=== PATIENT | female | born 1960 | race African-American/Black ===

== ENCOUNTER → 2016-05-30 | Outpatient (CLI) | payer OTHER ==
[~2016-05-30] MED LIST: ALBU8I INH; CYCL-36 PO; IBUP800T23 PO; LOVA20TA PO; MAXZ25 PO; NAPR500 PO; ROBA500T PO; VENTAER INH
== END ==
LOC: CLAB 11:45
PROVIDERS: ATTEND Obstetrics & Gynecology
DX: R30.9 Painful micturition, unspecified (principal)
CPT/HCPCS: 87077; 87086; 87186

== ENCOUNTER 2016-08-28 18:03 | Emergency (ER) | payer OTHER ==
[~2016-08-28] VITALS: Ht 149.9 cm; Wt 61.5 kg
[~2016-08-28 18:03] MED LIST changes: -IBUP800T23 PO; -ROBA500T PO; -VENTAER INH
[2016-08-28 18:05] VITALS: BP 159/85; PULSE 106; RESP 17; TEMP 98.2; O2SAT 98
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
[2016-08-28] MEDS ORDERED: VENTAER INH (18:29)
[2016-08-28] MEDS ORDERED: NAPR500 PO (18:29)
[2016-08-28] MEDS ORDERED: ROBA500T PO (18:30)
[2016-08-28] MEDS ORDERED: IBUP800T23 PO (18:30)
[2016-08-28] MEDS ORDERED: CYCLOBENZAPRINE HCL 10 MG TAB PO ONE (19:30)
[2016-08-28] MEDS ORDERED: IBUPROFEN 600 MG TAB PO ONE (19:30)
== END 2016-08-28 19:37 | disposition home or self-care (01) ==
LOC: NEPK 18:03
DX: S16.1XXA Strain of muscle, fascia and tendon at neck level, initial encounter (principal); S39.012A Strain of muscle, fascia and tendon of lower back, initial encounter; I10 Essential (primary) hypertension; Z87.09 Personal history of other diseases of the respiratory system; Z87.39 Personal history of other diseases of the musculoskeletal system and connective tissue; V89.2XXA Person injured in unspecified motor-vehicle accident, traffic, initial encounter; Y92.488 Other paved roadways as the place of occurrence of the external cause; Y99.0 Civilian activity done for income or pay
CPT/HCPCS: 99283

== ENCOUNTER 2016-12-09 21:56 | Emergency (ER) | payer OTHER ==
[~2016-12-09 21:56] MED LIST changes: -ALBU8I INH; -CYCL-36 PO; +IBUP800T23 PO; -LOVA20TA PO; -MAXZ25 PO; +ROBA500T PO; +VENTAER INH
[2016-12-09 22:01] VITALS: BP 113/58; PULSE 76; RESP 16; TEMP 97.7; O2SAT 100
[2016-12-11] MEDS ORDERED: PRED-503 PO (20:25)
== END 2016-12-10 00:08 | disposition left against medical advice (07) ==
LOC: NED 21:56
DX: M54.2 Cervicalgia (principal); Z53.21 Procedure and treatment not carried out due to patient leaving prior to being seen by health care provider
CPT/HCPCS: 99281

== ENCOUNTER 2016-12-11 17:05 | Emergency (ER) | payer OTHER ==
[~2016-12-11] VITALS: Ht 149.9 cm; Wt 61.5 kg
[2016-12-11 17:16] VITALS: BP 143/88; PULSE 84; RESP 22; TEMP 98.7; O2SAT 98
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
[2016-12-11] MEDS ORDERED: PRED-503 PO (20:25)
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
== END 2016-12-11 20:57 | disposition home or self-care (01) ==
LOC: NEPK 17:05
DX: M54.12 Radiculopathy, cervical region (principal); M19.90 Unspecified osteoarthritis, unspecified site; I10 Essential (primary) hypertension; J45.909 Unspecified asthma, uncomplicated; E78.00 Pure hypercholesterolemia, unspecified
CPT/HCPCS: 99283

== ENCOUNTER → 2017-07-30 | Outpatient (CLI) | payer OTHER ==
[~2017-07-30] MED LIST changes: +ALBU1.25 NEB; +ALBU6.7H INH; +BACL10TA PO; +DICL75TA PO; +FLUT1SPR5 EACH NARE; +IBUP1TAB7 PO; -IBUP800T23 PO; +LISI20TA3 PO; +OMEP20TA93 PO; +PRED-503 PO; +ROSU1TAB8 PO
[2017-07-30 14:05] LABS: AUTOMATED NEUTROPHIL # 9.4 TH/MM3 (1.8-7.7); BASOPHIL # 0.1 TH/MM3 (0-0.2); BASOPHIL % 0.4 % (0.0-2.0); EOSINOPHIL # 0.3 TH/MM3 (0-0.4); EOSINOPHIL % 2.3 % (0.0-4.0); HEMOGLOBIN 11.4 GM/DL (11.6-15.3); LYMPH % 18.3 % (9.0-44.0); LYMPHOCYTE # 2.4 TH/MM3 (1.0-4.8); MEAN CELL VOLUME 76.6 FL (80.0-100.0); MEAN CORPUSCULAR HEMOGLOBIN 24.9 PG (27.0-34.0); MEAN CORPUSCULAR HGB CONC 32.5 % (32.0-36.0); MEAN PLATELET VOLUME 8.5 FL (7.0-11.0); MONO % 8.3 % (0.0-8.0); MONOCYTE # 1.1 TH/MM3 (0-0.9); NEUT % 70.7 % (16.0-70.0); PLATELET COUNT 363 TH/MM3 (150-450); RED BLOOD COUNT 4.57 MIL/MM3 (4.00-5.30); RED CELL DISTRIBUTION WIDTH 15.2 % (11.6-17.2); WHITE BLOOD COUNT 13.3 TH/MM3 (4.0-11.0)
[2017-07-30 14:07] LABS: BILIRUBIN, URINE NEG (NEG); BLOOD, URINE NEG (NEG); GLUCOSE,URINE NEG (NEG); KETONE, URINE NEG (NEG); NITRITE,URINE NEG (NEG); URINE COLOR LIGHT-YELLOW (YELLW/STRAW); URINE LEUKOCYTE ESTERASE NEG (NEG)
[2017-07-30 14:16] LABS: INTERNATIONAL NORMALIZED RATIO 0.9 RATIO; PROTHROMBIN TIME - PATIENT 9.6 SEC (9.8-11.6)
--- NOTE | 2017-07-30 14:23 | RADRPT ---
EXAM DATE/TIME: 07/30/2017 13:41 [facility] COMPARISON: CHEST PA & LAT, August 20, 2014, 11:44. INDICATIONS : Evaluate for pneumonia, pneumothorax or communicable disease. Cervical spine surgery 418. MEDICAL HISTORY : bronchitis SURGICAL HISTORY : None. ENCOUNTER: Initial ACUITY: 1 day PAIN SCORE: 0/10 LOCATION: Bilateral chest FINDINGS: PA and lateral views of the chest demonstrate the lungs to be symmetrically aerated without evidence of mass, infiltrate or effusion. The cardiomediastinal contours are unremarkable. Osseous structure s are intact. CONCLUSION: No acute disease. Derek Coreas MD on July 30, 2017 at 14:20 Board Certified Radiologist. This report was verified electronically.
[2017-07-30 14:35] LABS: ALBUMIN 4.1 GM/DL (3.4-5.0); AST (GOT) 10 U/L (15-37); BICARBONATE 25.9 MEQ/L (21.0-32.0); BLOOD UREA NITROGEN 22 MG/DL (7-18); CALCIUM 9.7 MG/DL (8.5-10.1); CHLORIDE 102 MEQ/L (98-107); CREATININE 0.95 MG/DL (0.50-1.00); GLOMERULAR FILTRATION RATE 74 ML/MIN (>89); GLUCOSE,FASTING 80 MG/DL (74-99); SODIUM (NA) 136 MEQ/L (136-145)
[2017-07-30 14:36] LABS: ALT (GPT) 23 U/L (10-53)
[2017-07-30 14:39] LABS: ALKALINE PHOSPHATASE 80 U/L (45-117); TOTAL BILIRUBIN ADULT 0.4 MG/DL (0.2-1.0); TOTAL PROTEIN 8.9 GM/DL (6.4-8.2)
--- NOTE | 2017-07-31 15:39 | EKG ---
Date Performed: 07/30/2017 Time Performed: 12:52:51 PTAGE: 57 years EKG: Sinus rhythm POSSIBLE LEFT ATRIAL ENLARGEMENT BORDERLINE ECG Since the PREVIOUS TRACING , no significant change noted PREVIOUS TRACIN05/07/2015 23.26 DOCTOR: Hernandez Johnston Interpretating Date/Time 07/31/2017 15:37:57
== END ==
LOC: CPRE 12:27
PROVIDERS: ATTEND Neurological Surgery
DX: Z01.810 Encounter for preprocedural cardiovascular examination (principal); Z01.811 Encounter for preprocedural respiratory examination; Z01.812 Encounter for preprocedural laboratory examination; Z01.818 Encounter for other preprocedural examination; M54.12 Radiculopathy, cervical region; R94.31 Abnormal electrocardiogram [ECG] [EKG]; M99.59 Intervertebral disc stenosis of neural canal of abdomen and other regions; Z79.01 Long term (current) use of anticoagulants
CPT/HCPCS: 36415; 71046; 80053; 81001; 85025; 85610; 85730; 87640; 87641; 93005

== ENCOUNTER 2017-08-07 06:23 | Observation (INO) | payer OTHER ==
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
[~2017-08-07] VITALS: Ht 149.9 cm; Wt 66.0 kg
[~2017-08-07 06:23] MED LIST changes: -NAPR500 PO; -PRED-503 PO; -ROBA500T PO; -VENTAER INH
[2017-08-07] MEDS ORDERED: SODIUM CHLORID 0.9% 500 ML IV PRN (06:45)
[2017-08-07] MEDS ORDERED: POVIDONE IODINE 5% (ANTISEPSIS KIT) 4 APPLICATIONS EACH NARE PRN (06:45)
[2017-08-07] MEDS ORDERED: LACTATED RINGER'S 1000 ML IV PRN (06:45)
[2017-08-07] MEDS ORDERED: CHLORHEXIDINE GLUCONATE 2 % 1 PACK (2 CLOTHS) TOPICAL PRN (06:45)
[2017-08-07] MEDS ORDERED: METOPROLOL TARTRATE 25 MG TAB PO PRN (06:45)
[2017-08-07] MEDS ORDERED: VANCOMYCIN 1 GM/200 ML PREMIX ON-CALL IV SCH (06:45)
[2017-08-07] MEDS ORDERED: VANCOMYCIN HCL 1000 MG VIAL ONE (06:57)
[2017-08-07] MEDS ORDERED: THROMBIN (TOPICAL) 5,000 UNIT VIAL ONE (06:58)
[2017-08-07] MEDS ORDERED: GELFOAM SIZE 100 ONE (06:58)
[2017-08-07] MEDS ORDERED: BUPIVACAINE/EPINEPHRINE 0.5% PF 30 ML VIAL ONE (07:01)
[2017-08-07] MEDS ORDERED: PROPOFOL 500 MG/50 ML INJ 200 ML ONE (07:11)
[2017-08-07] MEDS ORDERED: HYDROmorphone HCL PF 2 MG/ML VIAL ONE (07:12)
[2017-08-07] MEDS ORDERED: KETAMINE HCL 500 MG/10 ML VIAL ONE (07:13)
[2017-08-07] MEDS ORDERED: ARTIFICIAL TEARS OPTH OINT 3.5 APPLIC/3.5 GM TUBO ONE (07:38)
[2017-08-07] MEDS ORDERED: PROPOFOL 500 MG/50 ML INJ 100 ML ONE (08:16)
[2017-08-07] MEDS ORDERED: DEXAMETHASONE SOD PHOS 4 MG/ML VIAL ONE (09:49)
[2017-08-07] MEDS ORDERED: CYCLOBENZAPRINE HCL 10 MG TAB PO PRN (11:23)
--- NOTE | 2017-08-07 11:44 | PD.OP ---
cc: Praveen Buitrago MD Operative Report Date of Surgery: Aug 07, 2017 Preoperative Diagnosis: Intractable neck pain with the bilateral C5 radiculopathy; cervical C4-5 disc osteophyte complex and protrusion with associated spinal and foraminal stenosis and kyphosis Postoperative Diagnosis: Same Procedure: Anterior cervical C4-5 microdiscectomy with foraminotomy and interbody fusion; anterior C4-5 cervical plate placement; C4-5 interbody cage placement; microsurgical technique Anesthesia: Gen. endotracheal by Areli joens Surgeon: Morris Ferguson M.D. Operation and Findings: Following administration of general endotracheal anesthesia, the patient received a gram of vancomycin and Decadron 10 mg intravenously. Sequential compression devices were placed in supine position on a Hernan table and all pressure points adequately padded. The head secured in a donut and anterior cervical region then shaved and prepped with Chloraprep and sterilely draped with Ioban along with the usual sterile draping. A transverse skin incision on the left side of the neck was then made after infiltrating the skin with 0.5% Marcaine with epinephrine solution extending down through the platysma. At the anterior border of the sternocleidomastoid further dissection was undertaken developing a plane between the carotid sheath laterally and the trachea esophagus medially. The prevertebral fascia was exposed and dissected out. The medial attachments of the longus colli muscles were detached and a self- retaining retractor used for exposure. The C4-5 disc space was localized with a marking the disc space and using lateral fluoroscopy. [place] distraction screws 14 mm length were placed one in the C4 and one in the C5 body interbody distraction and exposure. There was significant disc degeneration with disc height collapse with kyphosis and anterior osteophytes noted at the C4-5 level and the osteophytes were resected with a Leksell and annulus incised with a 15 blade and further dissection undertaken using microtechnique with microscope magnification. Diskectomy was undertaken with pituitaries and the endplates were also decorticated with curettes and drill bit. And more posteriorly there was disk osteophyte complex compressing the thecal sac along with a significant uncovertebral joint hypertrophy with foraminal stenosis which was decompressed along with removal of the posterior longitudinal ligaments at both levels. The foramen was decompressed bilaterally using a Kerrison's and palpation with a nerve hook, the exiting nerve roots were felt to be free. The area was then copiously irrigated. I then placed a Peek cage packed with local autograft bone at the C4-5 interspace under fluoroscopy guidance. [place] distraction pins were removed and the holes plugged with Gelfoam for hemostasis. In order to facilitate the fusion and provide stabilization, a Precision spine Uniplate was then placed with a 14 mm variable angle screws in the C4 body and a 14 mm fixed angle screws in the C5 body. The plate screw locking mechanism was then engaged. AP and lateral fluoroscopy confirmed good placement of the construct and the retractor was then removed. Muscular bleeding points were cauterized with bipolar cautery and Gelfoam was then also used for hemostasis which was removed. The platysma was then approximated using 3-0 Vicryl interrupted stitches and 3-0 Vicryl subcuticular stitch also placed in an interrupted fashion, and final skin closure was with Mastisol and Steri-Strips. Sterile dressing was then applied. The neck is immobilized in a Holt collar. The patient was then extubated and taken to the recovery room. There are no intraoperative complications and all sponge and needle counts were correct at the end of procedure. Estimated blood loss was about 100 cc. The patient did undergo intraoperative neurologic monitoring which remained stable throughout the surgery. Morris Ferguson MD Aug 07, 2017 11:44
[2017-08-07] MEDS ORDERED: LACTULOSE SYRUP 20 GM/30 ML CUP PO PRN (11:45)
[2017-08-07] MEDS ORDERED: MAGNESIUM HYDROXIDE SUSP 30 ML CUP PO PRN (11:45)
[2017-08-07] MEDS ORDERED: ALBUTEROL SULFATE 90 MCG/ACT HFA 8 GM INHALER INH PRN (11:45)
[2017-08-07] MEDS ORDERED: RESP: ALBUTEROL 1.25 MG/3 ML NEB (PRN) NEB (11:45)
[2017-08-07] MEDS ORDERED: SENNOSIDES 8.6 MG TAB PO PRN (11:45)
[2017-08-07] MEDS ORDERED: BISACODYL 10 MG SUPP RECTAL PRN (11:45)
[2017-08-07] MEDS ORDERED: SODIUM CHLOR 0.9% 1000 ML INJ 1,000 ML IV ONE (12:00)
[2017-08-07] MEDS ORDERED: DEXAMETHASONE SOD PHOS 4 MG/ML VIAL IV ONE (12:00)
[2017-08-07] MEDS ORDERED: PROPOFOL 200 MG/20 ML AMP IV ONE (12:00)
[2017-08-07] MEDS ORDERED: PHENYLEPHRINE HCL 10 MG/ML VIAL IV ONE (12:00)
[2017-08-07] MEDS ORDERED: SODIUM CHLORID 0.9% 500 ML INJ 500 ML IV ONE (12:00)
[2017-08-07] MEDS ORDERED: LIDOCAINE HCL 1% PF 5 ML SYRINGE OTHER ONE (12:00)
[2017-08-07] MEDS ORDERED: NEOSTIGMINE 5 MG/5 ML SYRINGE IV PUSH ONE (12:00)
[2017-08-07] MEDS ORDERED: GLYCOPYRROLATE 0.6 MG/3 ML SYRINGE IV PUSH ONE (12:00)
[2017-08-07] MEDS ORDERED: ROCURONIUM INJ 50 MG/5 ML SYRINGE IV PUSH ONE (12:00)
[2017-08-07] MEDS ORDERED: SODIUM CHLOR 0.9% 250 ML INJ 250 ML IV ONE (12:00)
[2017-08-07] MEDS ORDERED: ONDANSETRON HCL 4 MG/2 ML VIAL IV ONE (12:00)
[2017-08-07] MEDS ORDERED: NALOXONE HCL 0.4 MG/ML AMP ONE (12:07)
[2017-08-07] MEDS ORDERED: MIDAZOLAM HCL 2 MG/2 ML VIAL ONE (12:08)
[2017-08-07] MEDS ORDERED: NS + KCL 20 MEQ INJ 1,000 ML IV SCH (12:30)
[2017-08-07] MEDS ORDERED: cloNIDine HCL 0.1 MG TAB PO PRN (12:30)
[2017-08-07] MEDS ORDERED: MORPHINE SULFATE 2 MG/ML SYRINGE IV PUSH PRN (12:30)
[2017-08-07] MEDS ORDERED: ACETAMINOPHEN 325 MG TAB PO PRN (12:30)
[2017-08-07] MEDS ORDERED: MENTHOL LOZENGE BUCCAL PRN (12:30)
[2017-08-07] MEDS ORDERED: ONDANSETRON HCL 4 MG/2 ML VIAL IV PUSH PRN (12:30)
[2017-08-07] MEDS ORDERED: SODIUM CHLORIDE 0.9% FLUSH 10 ML FLUSH IV FLUSH PRN (12:30)
[2017-08-07] MEDS ORDERED: ALUMINUM/MAGNESIUM/SIMETH 30 ML CUP PO PRN (12:30)
--- NOTE | 2017-08-07 12:30 | RADRPT ---
EXAM DATE/TIME: 08/07/2017 08:57 [facility] COMPARISON: No previous studies available for comparison. INDICATIONS : Cervical fusion of C4/5. MEDICAL HISTORY : Unobtainable. SURGICAL HISTORY : Unobtainable. ENCOUNTER: Initial ACUITY: 1 day PAIN SCORE: Non-responsive. LOCATION: Cervical spine. FINDINGS: 2 views in the operating room show discectomy and fusion procedure with interbody and anterior instru mentation at C4/C5. Alignment is normal. No acute complication demonstrated. CONCLUSION: Expected radiographic appearance, discectomy and fusion procedure at C4/C5. Tr Garcia MD on August 07, 2017 at 12:27 Board Certified Radiologist. This report was verified electronically.
[2017-08-07] MEDS ORDERED: PROMETHAZINE INJ 25 MG/ML VIAL IM PRN (13:00)
[2017-08-07] MEDS ORDERED: *morphine SULFATE 4 MG/ML PERIprocedure ONLY ONE (13:04)
[2017-08-07] MEDS: DEXAMETHASONE SOD PHOS 4 MG/ML VIAL IV PUSH SCH ×2 (14:57→19:22)
[2017-08-07 15:49] VITALS: BP 147/78; PULSE 68; RESP 18; TEMP 97.9; O2SAT 100
[2017-08-07] MEDS: ACETAMINOPHEN/HYDROcodone 325 MG/10 MG TAB PO PRN (17:55)
[2017-08-07] MEDS: BACLOFEN 10 MG TAB PO SCH (19:22)
[2017-08-07] MEDS: DOCUSATE SODIUM 50 MG/SENNA 8.6 MG TAB PO SCH (19:22)
[2017-08-07] MEDS: SODIUM CHLORIDE 0.9% FLUSH 10 ML FLUSH IV FLUSH SCH (19:23)
[2017-08-07 20:00] VITALS: BP 113/53; PULSE 87; RESP 16; TEMP 98.5; O2SAT 96
[2017-08-07] MEDS ORDERED: ZOLPIDEM TARTRATE 5 MG TAB PO PRN (21:00)
[2017-08-08 00:20] VITALS: BP 111/56; PULSE 72; RESP 16; TEMP 98.1; O2SAT 100
[2017-08-08] MEDS: ACETAMINOPHEN/HYDROcodone 325 MG/10 MG TAB PO PRN ×6 (00:30→23:08)
[2017-08-08] MEDS: DEXAMETHASONE SOD PHOS 4 MG/ML VIAL IV PUSH SCH (00:30)
[2017-08-08 04:15] VITALS: BP 117/58; PULSE 73; RESP 16; TEMP 98; O2SAT 98
[2017-08-08 07:30] VITALS: BP 96/51; PULSE 78; RESP 17; TEMP 98.3; O2SAT 98
[2017-08-08] MEDS: HYDROCHLOROTHIAZIDE 25 MG TAB PO SCH (09:00)
[2017-08-08] MEDS: LISINOPRIL 20 MG TAB PO SCH (09:00)
[2017-08-08] MEDS: FLUTICASONE PROPIONATE 50 MCG/ACT 16 GM NASAL SPRAY EACH NARE SCH (09:00)
[2017-08-08] MEDS: ATORVASTATIN 40 MG TAB PO SCH (09:05)
[2017-08-08] MEDS: BACLOFEN 10 MG TAB PO SCH ×2 (09:05→23:07)
[2017-08-08] MEDS: DOCUSATE SODIUM 50 MG/SENNA 8.6 MG TAB PO SCH ×2 (09:06→23:08)
[2017-08-08] MEDS: SODIUM CHLORIDE 0.9% FLUSH 10 ML FLUSH IV FLUSH SCH ×2 (09:06→23:08)
[2017-08-08] MEDS: PANTOPRAZOLE SOD 20 MG DELAYED RELEASE TAB PO SCH (09:06)
--- NOTE | 2017-08-08 09:27 | HHI.NSPN ---
(Juventino Jacobs) History Chief Complaint: Incisional discomfort. (Juventino Jacobs) Interval History 08/09/17: Pt awake and alert. Sitting up in bed. Complains of difficulty swallowing. She is tolerating soft food such as apple sauce and her pills in that. No paresthesias in UEs. No radiculopathy in UEs. She has incisional discomfort. Weakness in UEs in deltoid bilaterally left more than right. (Juventino Jacobs) Review of Systems General: Negative for: fever, chills, insomnia Respiratory: Negative for: shortness of breath, cough, sputum Cardiovascular: Negative for: chest pain Gastrointestinal: Negative for: nausea, vomitting, diarrhea, constipation ( Juventino Jacobs) Exam Results Vital Signs Date Time Temp Pulse Resp B/P (MAP) Pulse Ox O2 Delivery O2 Flow Rate FiO2 08/08/17 07:30 98.3 78 17 96/51 (66) 98 08/07/17 14:15 Nasal Cannula 2 Intake and Output 08/08/17 08/08/17 08/09/17 08:00 16:00 00:00 Intake Total 100 ml Balance 100 ml (Juventino Jacobs) Physical Examination General: Pt resting in bed in NAD. Eyes: Pupils equal. Sclera anicteric. Resp: CTA bilaterally. Heart: NSR no murmurs Abd: Soft positive bs Skin: No cyanosis or erythema. Steri strips intact. New bandage placed. Muscle: Moves UEs with generalized weakness. She has difficulty lifting elbows to shoulder level left more than right, right 3/5 left 3-/5. She has left HI weakness 4-/5 right 4/5. Biceps and triceps generalized giveaway weakness 4-4+/5. Neuro: Pt awake and alert. Sitting up in bed. Follows commands well. Speech soft but appropriate. (Juventino Jacobs) Lab, Micro, Other Results Last Impressions Cervical Spine X-Ray 08/07/17 0000 Signed Impressions: Service Date/Time: Monday, August 07, 2017 08:57 - CONCLUSION: Expected radiographic appearance, discectomy and fusion procedure at C4/C5. Tr Garcia MD 08/08/17 08/08/17 08/09/17 15:00 23:00 07:00 Intake Total 100 ml Balance 100 ml Intake IV Total 100 ml (Juventino Jacobs) Medical Decision Making Impression and Plan A: 57 y/o FM s/p C4/C5 ACF with plate placement. P: OOB to chair. Ambulate with assistance. Speech therapy evaluate swallow for recommendations (Juventino Jacobs) Attending Statement The exam, history, and the medical decision-making described in the above note were completed with the assistance of the mid-level provider. I reviewed and agree with the findings presented. I attest that I had a [id number] encounter with the patient on the same day, and personally performed and documented my assessment and findings in the medical record. Relates some pain with movement especially left deltoid but is able to lift to shoulder level although not incorporating well for full muscle strength evaluation. We'll get PT and OT involvement and increase her activity status as tolerated along with pain control. (Morris Ferguson MD) Juventino Jacobs Aug 08, 2017 09:27 Morris Ferguson MD Aug 08, 2017 13:19
[2017-08-08 12:00] VITALS: BP 133/64; PULSE 77; RESP 18; TEMP 97.8; O2SAT 99
[2017-08-08 16:34] VITALS: BP 133/68; PULSE 77; RESP 17; TEMP 97.7; O2SAT 99
[2017-08-08 20:00] VITALS: BP 138/78; PULSE 77; RESP 15; TEMP 97.7; O2SAT 99
[2017-08-09] VITALS: BP 124/57; PULSE 87; RESP 20; TEMP 97.9; O2SAT 96
[2017-08-09 03:33] VITALS: BP 124/59; PULSE 75; RESP 19; TEMP 98.1; O2SAT 98
[2017-08-09] MEDS: ACETAMINOPHEN/HYDROcodone 325 MG/10 MG TAB PO PRN ×3 (03:47→11:50)
[2017-08-09 08:00] VITALS: BP 123/60; PULSE 92; RESP 18; TEMP 98.1; O2SAT 97
[2017-08-09] MEDS: BACLOFEN 10 MG TAB PO SCH (08:27)
[2017-08-09] MEDS: PANTOPRAZOLE SOD 20 MG DELAYED RELEASE TAB PO SCH (08:27)
[2017-08-09] MEDS: LISINOPRIL 20 MG TAB PO SCH (08:27)
[2017-08-09] MEDS: DOCUSATE SODIUM 50 MG/SENNA 8.6 MG TAB PO SCH (08:28)
[2017-08-09] MEDS: HYDROCHLOROTHIAZIDE 25 MG TAB PO SCH (08:28)
[2017-08-09] MEDS: SODIUM CHLORIDE 0.9% FLUSH 10 ML FLUSH IV FLUSH SCH (08:28)
[2017-08-09] MEDS: ATORVASTATIN 40 MG TAB PO SCH (08:28)
[2017-08-09] MEDS: FLUTICASONE PROPIONATE 50 MCG/ACT 16 GM NASAL SPRAY EACH NARE SCH (08:35)
--- NOTE | 2017-08-09 09:34 | HHI.NSPN ---
History Chief Complaint: Incisional discomfort. Interval History 08/08/17: Pt awake and alert. Sitting up in bed. Complains of difficulty swallowing. She is tolerating soft food such as apple sauce and her pills in that. No paresthesias in UEs. No radiculopathy in UEs. She has incisional discomfort. Weakness in UEs in deltoid bilaterally left more than right. 08/09/17: Pt awake and alert. Sitting up in bed eating breakfast. She is tolerating broth states sore throat but tolerating liquids. She was seen by speech therapy yesterday and they have cleared her for regular diet. Pt states ambulates short distances. She wants to go home. Review of Systems General: Negative for: fever, chills, insomnia Respiratory: Negative for: shortness of breath, cough, sputum Cardiovascular: Negative for: chest pain Gastrointestinal: Negative for: nausea, vomitting, diarrhea, constipation Exam Results Vital Signs Date Time Temp Pulse Resp B/P (MAP) Pulse Ox O2 Delivery O2 Flow Rate FiO2 08/09/17 08:00 98.1 92 18 123/60 (81) 97 08/07/17 14:15 Nasal Cannula 2 Intake and Output 08/09/17 08/09/17 08/10/17 08:00 16:00 00:00 Intake Total 240 ml Balance 240 ml Physical Examination General: Pt resting in bed in NAD. Eyes: Pupils equal. Sclera anicteric. Resp: CTA bilaterally. Heart: NSR no murmurs Abd: Soft positive bs Skin: No cyanosis or erythema. Steri strips intact. Muscle: Moves UEs with generalized weakness. She has difficulty lifting elbows to shoulder level left more than right, right 4/5 left 3/5. She has left HI weakness 4/5 right 4/5. Biceps and triceps generalized giveaway weakness 4+/5. Some improvement in overall strength but still with some difficulty with abduction left elbow to shoulder level. Neuro: Pt awake and alert. Sitting up in bed. Follows commands well. Speech soft but appropriate. Lab, Micro, Other Results Last Impressions Cervical Spine X-Ray 08/07/17 0000 Signed Impressions: Service Date/Time: Monday, August 07, 2017 08:57 - CONCLUSION: Expected radiographic appearance, discectomy and fusion procedure at C4/C5. Tr Garcia MD Medical Decision Making Impression and Plan A: 57 y/o FM s/p C4/C5 ACF with plate placement. P: Discharge pt home Keep incision clean and dry. Discussed incisional care. Juventino Jacobs Aug 09, 2017 9:34 am
[2017-08-09 11:58] VITALS: BP 127/88; PULSE 75; RESP 18; TEMP 97.5; O2SAT 94
== END 2017-08-09 12:05 | disposition home health service (06) ==
LOC: HSDC 06:23 → HSDI 11:43 → N06A 14:49
PROVIDERS: ADMIT Neurological Surgery; ATTEND Neurological Surgery
DX: M48.02 Spinal stenosis, cervical region (principal); M54.12 Radiculopathy, cervical region; M25.78 Osteophyte, vertebrae; I10 Essential (primary) hypertension; E78.5 Hyperlipidemia, unspecified; K21.9 Gastro-esophageal reflux disease without esophagitis; M40.292 Other kyphosis, cervical region; R13.10 Dysphagia, unspecified; R53.1 Weakness; J02.9 Acute pharyngitis, unspecified
CPT/HCPCS: 00600; 20936; 22551; 22853; 72040; 76000; 92526; 92610; 94150; 96365; 96366; 96375; 96376; 97161; 97166; C1713; G0378; G8987; G8988; G8996; G8997; J0690; J1100; J1170; J2250; J2270; J2310; J2370; J2405; J2710; J3010; J3370; J3480; J7030; J7040; J7050; J7120; L0150; L0172

== ENCOUNTER → 2017-10-03 | Outpatient (CLI) | payer OTHER ==
[~2017-10-03] MED LIST changes: -DICL75TA PO; -IBUP1TAB7 PO
[2017-10-03 12:58] LABS: AUTOMATED NEUTROPHIL # 4.3 TH/MM3 (1.8-7.7); BASOPHIL # 0.1 TH/MM3 (0-0.2); BASOPHIL % 0.8 % (0.0-2.0); EOSINOPHIL # 0.1 TH/MM3 (0-0.4); EOSINOPHIL % 1.6 % (0.0-4.0); HEMATOCRIT 33.4 % (35.0-46.0); LYMPH % 28.2 % (9.0-44.0); MEAN CELL VOLUME 74.4 FL (80.0-100.0); MEAN CORPUSCULAR HEMOGLOBIN 24.4 PG (27.0-34.0); MEAN CORPUSCULAR HGB CONC 32.8 % (32.0-36.0); MEAN PLATELET VOLUME 8.1 FL (7.0-11.0); MONO % 9.1 % (0.0-8.0); MONOCYTE # 0.7 TH/MM3 (0-0.9); NEUT % 60.3 % (16.0-70.0); PLATELET COUNT 348 TH/MM3 (150-450); RED BLOOD COUNT 4.49 MIL/MM3 (4.00-5.30); RED CELL DISTRIBUTION WIDTH 14.6 % (11.6-17.2); WHITE BLOOD COUNT 7.2 TH/MM3 (4.0-11.0)
[2017-10-03 13:21] LABS: ALBUMIN 3.6 GM/DL (3.4-5.0); ALT (GPT) 22 U/L (10-53); AST (GOT) 17 U/L (15-37); BICARBONATE 29.1 MEQ/L (21.0-32.0); BLOOD UREA NITROGEN 18 MG/DL (7-18); CALCIUM 9.2 MG/DL (8.5-10.1); CHLORIDE 102 MEQ/L (98-107); CHOLESTEROL 159 MG/DL (120-200); CREATININE 0.96 MG/DL (0.50-1.00); GLOMERULAR FILTRATION RATE 73 ML/MIN (>89); GLUCOSE,FASTING 81 MG/DL (74-99); SODIUM (NA) 140 MEQ/L (136-145)
[2017-10-03 13:32] LABS: ALKALINE PHOSPHATASE 75 U/L (45-117); CHOLESTEROL/ HDL RATIO 2.65 RATIO; HDL CHOLESTEROL 59.9 MG/DL (40.0-60.0); LDL CHOLESTEROL 83 MG/DL (0-99); TOTAL BILIRUBIN ADULT 0.5 MG/DL (0.2-1.0); TOTAL PROTEIN 7.7 GM/DL (6.4-8.2); TRIGLYCERIDES 81 MG/DL (42-150)
== END ==
LOC: CLAB 12:06
PROVIDERS: ATTEND Family Medicine
DX: Z00.00 Encounter for general adult medical examination without abnormal findings (principal)
CPT/HCPCS: 36415; 80053; 80061; 84443; 85025

== ENCOUNTER → 2017-10-30 | Outpatient (CLI) | payer OTHER ==
[2017-10-30 07:51] LABS: AUTOMATED NEUTROPHIL # 4.3 TH/MM3 (1.8-7.7); BASOPHIL % 0.6 % (0.0-2.0); EOSINOPHIL # 0.1 TH/MM3 (0-0.4); HEMATOCRIT 33.6 % (35.0-46.0); HEMOGLOBIN 11.1 GM/DL (11.6-15.3); LYMPH % 29.8 % (9.0-44.0); LYMPHOCYTE # 2.2 TH/MM3 (1.0-4.8); MEAN CORPUSCULAR HEMOGLOBIN 24.5 PG (27.0-34.0); MEAN CORPUSCULAR HGB CONC 33.2 % (32.0-36.0); MEAN PLATELET VOLUME 8.4 FL (7.0-11.0); MONO % 9.1 % (0.0-8.0); MONOCYTE # 0.7 TH/MM3 (0-0.9); NEUT % 58.5 % (16.0-70.0); PLATELET COUNT 362 TH/MM3 (150-450); RED BLOOD COUNT 4.54 MIL/MM3 (4.00-5.30); RED CELL DISTRIBUTION WIDTH 14.9 % (11.6-17.2); WHITE BLOOD COUNT 7.4 TH/MM3 (4.0-11.0)
[2017-10-30 08:08] LABS: FERRITIN 34 NG/ML (8-252)
[2017-10-30 08:09] LABS: % SATURATION IRON PROFILE 18.9 % (20-50); TOTAL IRON BINDING CAPACITY 407 MCG/DL (250-450)
[2017-10-30 08:10] LABS: IRON (FE) 77 MCG/DL (50-170)
== END ==
LOC: CLAB 07:08
PROVIDERS: ATTEND Family Medicine
DX: D64.9 Anemia, unspecified (principal)
CPT/HCPCS: 36415; 82728; 83540; 83550; 85025